=== PATIENT | male | born 1960 | race Caucasian/White ===

== ENCOUNTER 2017-09-07 10:41 | Emergency (ER) | payer MEDICAID, OTHER ==
[~2017-09-07] VITALS: Ht 167.6 cm; Wt 76.0 kg
[~2017-09-07 10:41] MED LIST: ATOR10TA PO; IBUP-2030 PO; METF850T2 PO; SULF1TAB48 PO
[2017-09-07] MEDS ORDERED: TETANUS AND DIPHTHERIA TOX/PF 0.5ML SYR (ADULT) IM ONE (11:30)
[2017-09-07] MEDS ORDERED: TETANUS, DIPHTHERIA, PERTUSSIS VAC/PF 0.5ML (>7YR OLD) IM ONE (11:45)
[2017-09-07] MEDS ORDERED: IBUPROFEN 600MG TABLET PO ONE (12:45)
[2017-09-07] MEDS ORDERED: BACITRACIN ZINC OINT UDPKT TOP ONE (12:45)
[2017-09-07 13:01] VITALS: BP 129/75
== END 2017-09-07 13:07 | disposition home or self-care (01) ==
LOC: ER 10:52
DX: S91.332A Puncture wound without foreign body, left foot, initial encounter (principal); E11.65 Type 2 diabetes mellitus with hyperglycemia; I10 Essential (primary) hypertension; W22.8XXA Striking against or struck by other objects, initial encounter; Y93.89 Activity, other specified; Y92.89 Other specified places as the place of occurrence of the external cause; Y99.8 Other external cause status; Z98.890 Other specified postprocedural states
CPT/HCPCS: 73620; 82962; 90714; 99284; 99285

== ENCOUNTER 2017-11-02 14:34 | Emergency (ER) | payer OTHER ==
[~2017-11-02] VITALS: Ht 175.3 cm; Wt 75.0 kg
[2017-11-02] MEDS ORDERED: TETANUS, DIPHTHERIA, PERTUSSIS VAC/PF 0.5ML (>7YR OLD) IM ONE (16:30)
[2017-11-02 16:47] VITALS: BP 132/80
== END 2017-11-02 16:57 | disposition home or self-care (01) ==
LOC: ER 15:03
DX: S91.331A Puncture wound without foreign body, right foot, initial encounter (principal); I10 Essential (primary) hypertension; E11.9 Type 2 diabetes mellitus without complications; E78.00 Pure hypercholesterolemia, unspecified; W45.0XXA Nail entering through skin, initial encounter; Y93.89 Activity, other specified; Y99.8 Other external cause status; Y92.89 Other specified places as the place of occurrence of the external cause; Z87.891 Personal history of nicotine dependence; Z98.890 Other specified postprocedural states
CPT/HCPCS: 73630; 99284

== ENCOUNTER 2018-10-12 10:06 | Emergency (ER) | payer OTHER ==
[~2018-10-12] VITALS: Ht 175.3 cm; Wt 80.0 kg
[~2018-10-12 10:06] MED LIST changes: +METF-415 PO; -METF850T2 PO
[2018-10-12 10:29] VITALS: BP 129/77
[2018-10-12] MEDS ORDERED: BACITRACIN ZINC OINT UDPKT TOP ONE (11:15)
[2018-10-12] MEDS ORDERED: TETANUS, DIPHTHERIA, PERTUSSIS VAC/PF 0.5ML (>7YR OLD) IM ONE (11:15)
== END 2018-10-12 12:22 | disposition home or self-care (01) ==
LOC: ER 10:11
DX: S90.421A Blister (nonthermal), right great toe, initial encounter (principal); L02.611 Cutaneous abscess of right foot; E11.40 Type 2 diabetes mellitus with diabetic neuropathy, unspecified; I10 Essential (primary) hypertension; F17.200 Nicotine dependence, unspecified, uncomplicated; Z79.899 Other long term (current) drug therapy; Z98.890 Other specified postprocedural states; W18.39XA Other fall on same level, initial encounter; Y93.89 Activity, other specified; Y92.89 Other specified places as the place of occurrence of the external cause; Y99.8 Other external cause status
CPT/HCPCS: 10060; 82962; 90471; 90715; 99283; Z7610

== ENCOUNTER 2018-12-11 13:07 | Emergency (ER) | payer OTHER ==
[~2018-12-11] VITALS: Ht 175.3 cm; Wt 79.0 kg
[2018-12-11] MEDS ORDERED: KETOROLAC 30MG/ML VIAL IV STA (16:18)
[2018-12-11] MEDS: VANCOMYCIN 1 G PREMIX 200 ML IV SCH ×2 (16:31→18:47)
[2018-12-11 16:48] LABS: CHLORIDE 102 mEq/L (98-107); INR 1.1; PROTHROMBIN TIME 11.6 sec (9.6-11.0)
[2018-12-11] MEDS ORDERED: PIPERACILLIN/TAZOBACTAM 3.375GM/50ML PREMIX IV ONE (17:00)
[2018-12-11] MEDS: PIPERACILLIN/TAZ 3.375G PREMIX 50 ML IV NR ×2 (17:31→17:42)
[2018-12-11 17:33] LABS: BASOPHILS % 0.5 % (0.0-2.0); EOSINOPHILS % 2.4 % (0.0-5.0); HEMATOCRIT. 31.5 % (42.0-52.0); HEMOGLOBIN. 10.8 g/dL (14.0-18.0); LYMPHOCYTES % 14.8 % (20.0-50.0); MEAN CORPUSCULAR HEMOGLOBIN 30.5 pg (28.0-32.0); MEAN CORPUSCULAR VOLUME 89.3 fL (80.0-94.0); MEAN PLATELET VOLUME 7.2 fl (7.4-10.4); MONOCYTES % 7.3 % (2.0-8.0); PLATELET 291 x1000/uL (130-400); RED BLOOD CELL COUNT 3.53 mill/uL (4.7-6.1); RED CELL DISTRIBUTION WIDTH 13.8 % (11.6-14.6)
[2018-12-11] MEDS ORDERED: SODIUM CHLORIDE 0.9% 1,000 ML IV ONE (18:14)
[2018-12-11 19:50] VITALS: BP 115/70
== END 2018-12-11 21:01 | disposition short-term general hospital (02) ==
LOC: ER 13:07 → CANBEDREQ 21:45
DX: E11.621 Type 2 diabetes mellitus with foot ulcer (principal); L97.528 Non-pressure chronic ulcer of other part of left foot with other specified severity; M86.9 Osteomyelitis, unspecified; E78.00 Pure hypercholesterolemia, unspecified; I10 Essential (primary) hypertension; Z88.6 Allergy status to analgesic agent
CPT/HCPCS: 36415; 71045; 73620; 80053; 85025; 85610; 93005; 96365; 96367; 96375; 99285; J1885; J2543; J3370; J7030

== ENCOUNTER 2019-02-16 10:23 | Emergency (ER) | payer OTHER ==
[~2019-02-16] VITALS: Ht 175.3 cm; Wt 72.7 kg
[2019-02-16 10:54] VITALS: BP 139/77
== END 2019-02-16 12:31 | disposition home or self-care (01) ==
LOC: ER 10:47
DX: Z76.0 Encounter for issue of repeat prescription (principal); E11.9 Type 2 diabetes mellitus without complications; Z79.4 Long term (current) use of insulin; Z88.6 Allergy status to analgesic agent; Z89.421 Acquired absence of other right toe(s)
CPT/HCPCS: 99281

== ENCOUNTER 2019-04-28 16:20 | Inpatient (IN) | payer OTHER ==
[~2019-04-28] VITALS: Ht 167.6 cm; Wt 86.8 kg
[2019-04-28] MEDS ORDERED: SODIUM CHLORIDE 0.9% 1000ML BAG (SEPSIS BOLUS) IV ONE (16:45)
[2019-04-28] MEDS ORDERED: VANCOMYCIN 1 G PREMIX 200 ML IV ONE (17:00)
[2019-04-28] MEDS ORDERED: PIPERACILLIN/TAZ 3.375G PREMIX 50 ML IV ONE (17:00)
[2019-04-28 17:19] LABS: BASOPHILS % 0.5 % (0.0-2.0); HEMATOCRIT. 36.7 % (42.0-52.0); HEMOGLOBIN. 12.7 g/dL (14.0-18.0); LYMPHOCYTES % 9.8 % (20.0-50.0); MEAN CORPUSCULAR HEMOGLOBIN 29.6 pg (28.0-32.0); MEAN CORPUSCULAR VOLUME 85.9 fL (80.0-94.0); MEAN PLATELET VOLUME 7.4 fl (7.4-10.4); MONOCYTES % 4.7 % (2.0-8.0); PLATELET 308 x1000/uL (130-400); RED BLOOD CELL COUNT 4.28 mill/uL (4.7-6.1); RED CELL DISTRIBUTION WIDTH 13.7 % (11.6-14.6)
[2019-04-28 17:24] LABS: INR 1.1; PROTHROMBIN TIME 11.7 sec (9.6-11.0)
[2019-04-28 17:25] LABS: CHLORIDE 95 mEq/L (98-107)
[2019-04-28] MEDS ORDERED: HYDROCODONE/ACETAMINOPHEN 5/325MG TABLET PO ONE (18:00)
[2019-04-28 18:41] LABS: CLARITY URINE CLEAR (CLEAR); COLOR URINE YELLOW (YELLOW); KETONES URINE TRACE (NEGATIVE); LEUKOCYTE ESTERASE URINE NEGATIVE (NEGATIVE); NITRITE URINE NEGATIVE (NEGATIVE); OCCULT BLOOD URINE 1+ (NEGATIVE); PH URINE 5.5 (4.5-8.0); PROTEIN URINE 1+ (NEGATIVE); UROBILINOGEN URINE 0.2 E.U./dL (0.2-1.0)
[2019-04-28] MEDS ORDERED: INSULIN REGULAR (HUMULIN R) 300UNITS/3ML SUBCUT NR (22:30)
[2019-04-28 23:30] VITALS: BP 125/68
[2019-04-29] VITALS (7 sets, daily range): BP systolic 106–128; BP diastolic 63–71
[2019-04-29] MEDS ORDERED: DEXTROSE 50% WATER 50ML SYRINGE IV PRN (01:00)
[2019-04-29] MEDS: HYDROMORPHONE HCL/PF 2MG/ML CPJ IM PRN ×3 (02:13→18:36)
[2019-04-29 06:13] LABS: BASOPHILS % 0.7 % (0.0-2.0); EOSINOPHILS % 0.5 % (0.0-5.0); HEMOGLOBIN. 10.6 g/dL (14.0-18.0); LYMPHOCYTES % 17.6 % (20.0-50.0); MEAN CORPUSCULAR VOLUME 84.8 fL (80.0-94.0); MEAN PLATELET VOLUME 7.3 fl (7.4-10.4); MONOCYTES % 8.4 % (2.0-8.0); NEUTROPHILS % 72.8 % (40.0-76.0); PLATELET 226 x1000/uL (130-400); RED BLOOD CELL COUNT 3.66 mill/uL (4.7-6.1); RED CELL DISTRIBUTION WIDTH 13.7 % (11.6-14.6)
[2019-04-29] MEDS: BLOOD SUGAR DIAGNOSTIC STRIP TEST SCH ×4 (06:59→21:01)
[2019-04-29] MEDS ORDERED: VANCOMYCIN 750 MG PREMIX 150 ML IV SCH (09:00)
[2019-04-29] MEDS: ASPIRIN 325MG TABLET PO SCH (09:52)
[2019-04-29] MEDS: ENOXAPARIN 40MG/0.4ML SYR SUBCUT SCH (10:27)
[2019-04-29] MEDS: INSULIN GLARGINE UD 100 UNITS/ML SYR SUBCUT SCH ×2 (10:28→22:29)
[2019-04-29] MEDS: INSULIN LISPRO 100 UNITS/ML SUBCUT SCH ×4 (10:28→21:11)
[2019-04-29] MEDS: SODIUM CHLORIDE 0.9% 1,000 ML IV SCH ×2 (10:29→22:29)
[2019-04-29] MEDS: HYDROCODONE/ACETAMINOPHEN 10/325MG TABLET PO PRN (13:41)
[2019-04-29] MEDS: PIPERACILLIN/TAZOBACTAM 3.375 G in DEXT 5% WATER 100 ML IV SCH (21:12)
[2019-04-29] MEDS: ACETAMINOPHEN 325MG TABLET PO PRN (22:20)
[2019-04-30 00:07] VITALS: BP 115/59
[2019-04-30] MEDS: VANCOMYCIN 1 G PREMIX 200 ML IV SCH ×2 (00:08→18:34)
[2019-04-30] MEDS: HYDROCODONE/ACETAMINOPHEN 10/325MG TABLET PO PRN ×2 (00:23→04:34)
[2019-04-30] MEDS: PIPERACILLIN/TAZOBACTAM 3.375 G in DEXT 5% WATER 100 ML IV SCH ×4 (02:48→21:23)
[2019-04-30 04:00] VITALS: BP 117/69
[2019-04-30 06:29] LABS: BASOPHILS % 0.3 % (0.0-2.0); EOSINOPHILS % 1.8 % (0.0-5.0); HEMATOCRIT. 32.5 % (42.0-52.0); HEMOGLOBIN. 11.1 g/dL (14.0-18.0); LYMPHOCYTES % 18.6 % (20.0-50.0); MEAN CORPUSCULAR HEMOGLOBIN 29.2 pg (28.0-32.0); MEAN CORPUSCULAR VOLUME 85.9 fL (80.0-94.0); MEAN PLATELET VOLUME 7.1 fl (7.4-10.4); NEUTROPHILS % 69.3 % (40.0-76.0); PLATELET 244 x1000/uL (130-400); RED BLOOD CELL COUNT 3.79 mill/uL (4.7-6.1); RED CELL DISTRIBUTION WIDTH 13.4 % (11.6-14.6)
[2019-04-30 06:38] LABS: CHLORIDE 99 mEq/L (98-107)
[2019-04-30] MEDS: BLOOD SUGAR DIAGNOSTIC STRIP TEST SCH ×4 (07:57→21:23)
[2019-04-30] MEDS: ASPIRIN 325MG TABLET PO SCH (08:48)
[2019-04-30] MEDS: ENOXAPARIN 40MG/0.4ML SYR SUBCUT SCH (08:49)
[2019-04-30] MEDS: INSULIN LISPRO 100 UNITS/ML SUBCUT SCH ×6 (09:04→21:31)
[2019-04-30] MEDS: INSULIN GLARGINE UD 100 UNITS/ML SYR SUBCUT SCH ×2 (10:26→21:32)
[2019-04-30] MEDS: ACETAMINOPHEN 325MG TABLET PO PRN (11:24)
[2019-04-30 12:00] VITALS: BP 121/70
[2019-04-30] MEDS ORDERED: SORBITOL 70% SOLN 30ML PO SCH (12:00)
[2019-04-30 16:00] VITALS: BP 121/69
[2019-04-30] MEDS: SODIUM CHLORIDE 0.9% 1,000 ML IV SCH (17:59)
[2019-04-30] MEDS: HYDROMORPHONE HCL/PF 2MG/ML CPJ IM PRN (18:00)
[2019-04-30 20:00] VITALS: BP 128/71
[2019-05-01] VITALS: BP 117/73
[2019-05-01] MEDS: ACETAMINOPHEN 325MG TABLET PO PRN (00:47)
[2019-05-01] MEDS: SODIUM CHLORIDE 0.9% 1,000 ML IV SCH (02:33)
[2019-05-01] MEDS ORDERED: ONDANSETRON HCL 4MG/2ML INJ IV PRN (03:00)
[2019-05-01] MEDS: PIPERACILLIN/TAZOBACTAM 3.375 G in DEXT 5% WATER 100 ML IV SCH ×2 (03:12→08:59)
[2019-05-01 04:00] VITALS: BP 114/86
[2019-05-01 06:42] LABS: BASOPHILS % 0.5 % (0.0-2.0); EOSINOPHILS % 3.5 % (0.0-5.0); HEMATOCRIT. 28.8 % (42.0-52.0); HEMOGLOBIN. 9.9 g/dL (14.0-18.0); LYMPHOCYTES % 21.7 % (20.0-50.0); MEAN CORPUSCULAR HEMOGLOBIN 29.2 pg (28.0-32.0); MEAN CORPUSCULAR VOLUME 84.7 fL (80.0-94.0); MEAN PLATELET VOLUME 7.5 fl (7.4-10.4); MONOCYTES % 11.2 % (2.0-8.0); NEUTROPHILS % 63.1 % (40.0-76.0); PLATELET 234 x1000/uL (130-400); RED CELL DISTRIBUTION WIDTH 13.7 % (11.6-14.6)
[2019-05-01 06:57] LABS: CHLORIDE 103 mEq/L (98-107)
[2019-05-01] MEDS: INSULIN LISPRO 100 UNITS/ML SUBCUT SCH ×7 (07:40→21:54)
[2019-05-01] MEDS: BLOOD SUGAR DIAGNOSTIC STRIP TEST SCH ×4 (07:58→20:33)
[2019-05-01 08:00] VITALS: BP 125/79
[2019-05-01] MEDS: ENOXAPARIN 40MG/0.4ML SYR SUBCUT SCH (08:59)
[2019-05-01] MEDS: HYDROCODONE/ACETAMINOPHEN 10/325MG TABLET PO PRN ×3 (08:59→21:53)
[2019-05-01] MEDS: INSULIN GLARGINE UD 100 UNITS/ML SYR SUBCUT SCH ×2 (10:00→21:55)
[2019-05-01 12:00] VITALS: BP 124/75
[2019-05-01 16:00] VITALS: BP 127/78
[2019-05-01] MEDS: VANCOMYCIN 1 G PREMIX 200 ML IV SCH (16:48)
[2019-05-01] MEDS: ASPIRIN 325MG TABLET PO SCH (16:50)
[2019-05-01] MEDS ORDERED: POTASSIUM CHLORIDE 20MEQ TABLET SR PO NR (17:15)
[2019-05-02] VITALS: BP 121/68
[2019-05-02] MEDS: HYDROCODONE/ACETAMINOPHEN 10/325MG TABLET PO PRN ×4 (02:03→21:57)
[2019-05-02 04:00] VITALS: BP 114/61
[2019-05-02] MEDS: VANCOMYCIN 1 G PREMIX 200 ML IV SCH (05:53)
[2019-05-02 07:23] LABS: BASOPHILS % 0.7 % (0.0-2.0); EOSINOPHILS % 6.9 % (0.0-5.0); HEMOGLOBIN. 9.6 g/dL (14.0-18.0); LYMPHOCYTES % 31.7 % (20.0-50.0); MEAN CORPUSCULAR HEMOGLOBIN 29.5 pg (28.0-32.0); MEAN CORPUSCULAR VOLUME 86.1 fL (80.0-94.0); MEAN PLATELET VOLUME 7.3 fl (7.4-10.4); MONOCYTES % 10.9 % (2.0-8.0); NEUTROPHILS % 49.8 % (40.0-76.0); PLATELET 259 x1000/uL (130-400); RED BLOOD CELL COUNT 3.25 mill/uL (4.7-6.1)
[2019-05-02] MEDS: BLOOD SUGAR DIAGNOSTIC STRIP TEST SCH ×4 (07:40→21:41)
[2019-05-02 08:00] VITALS: BP 129/66
[2019-05-02 08:02] LABS: CHLORIDE 102 mEq/L (98-107)
[2019-05-02] MEDS: INSULIN LISPRO 100 UNITS/ML SUBCUT SCH ×7 (08:10→21:56)
[2019-05-02] MEDS: SODIUM CHLORIDE 0.9% 1,000 ML IV SCH ×2 (08:46→17:32)
[2019-05-02] MEDS: ENOXAPARIN 40MG/0.4ML SYR SUBCUT SCH (08:46)
[2019-05-02] MEDS: ASPIRIN 325MG TABLET PO SCH (08:46)
[2019-05-02] MEDS: INSULIN GLARGINE UD 100 UNITS/ML SYR SUBCUT SCH ×2 (11:04→21:56)
[2019-05-02 12:00] VITALS: BP 123/73
[2019-05-02] MEDS: VANCOMYCIN 750 MG PREMIX 150 ML IV SCH ×2 (13:47→21:57)
[2019-05-02 16:00] VITALS: BP 129/72
[2019-05-02 20:00] VITALS: BP 130/80
[2019-05-03] VITALS: BP 134/70
[2019-05-03 04:00] VITALS: BP 139/73
[2019-05-03] MEDS: VANCOMYCIN 750 MG PREMIX 150 ML IV SCH ×3 (05:25→22:00)
[2019-05-03] MEDS: HYDROCODONE/ACETAMINOPHEN 10/325MG TABLET PO PRN ×2 (05:26→13:15)
[2019-05-03] MEDS: SODIUM CHLORIDE 0.9% 1,000 ML IV SCH ×2 (05:32→22:00)
[2019-05-03] MEDS: INSULIN LISPRO 100 UNITS/ML SUBCUT SCH ×7 (07:40→23:22)
[2019-05-03] MEDS: BLOOD SUGAR DIAGNOSTIC STRIP TEST SCH ×4 (07:42→21:00)
[2019-05-03 08:00] VITALS: BP 123/67
[2019-05-03] MEDS: ASPIRIN 325MG TABLET PO SCH (08:47)
[2019-05-03] MEDS: ACETAMINOPHEN 325MG TABLET PO PRN (08:47)
[2019-05-03] MEDS: ENOXAPARIN 40MG/0.4ML SYR SUBCUT SCH (08:48)
[2019-05-03 12:00] VITALS: BP 101/57
[2019-05-03] MEDS: INSULIN GLARGINE UD 100 UNITS/ML SYR SUBCUT SCH ×2 (12:32→23:23)
[2019-05-03 16:00] VITALS: BP 111/63
[2019-05-03 20:00] VITALS: BP 130/79
[2019-05-04] VITALS: BP 124/61
[2019-05-04 04:00] VITALS: BP 131/68
[2019-05-04] MEDS: VANCOMYCIN 750 MG PREMIX 150 ML IV SCH ×3 (06:23→22:10)
[2019-05-04] MEDS: BLOOD SUGAR DIAGNOSTIC STRIP TEST SCH ×4 (07:40→20:08)
[2019-05-04] MEDS: INSULIN LISPRO 100 UNITS/ML SUBCUT SCH ×7 (07:40→22:09)
[2019-05-04 08:00] VITALS: BP 110/56
[2019-05-04] MEDS: ASPIRIN 325MG TABLET PO SCH (09:18)
[2019-05-04] MEDS: ENOXAPARIN 40MG/0.4ML SYR SUBCUT SCH (09:20)
[2019-05-04 12:00] VITALS: BP 98/46
[2019-05-04] MEDS: SODIUM CHLORIDE 0.9% 1,000 ML IV SCH ×2 (14:11→22:10)
[2019-05-04] MEDS: INSULIN GLARGINE UD 100 UNITS/ML SYR SUBCUT SCH ×2 (14:16→22:19)
[2019-05-04] MEDS: ACETAMINOPHEN 325MG TABLET PO PRN ×2 (15:39→20:08)
[2019-05-04 15:45] VITALS: BP 131/64
[2019-05-04 20:00] VITALS: BP 135/63
[2019-05-05] VITALS: BP 130/68
[2019-05-05 04:00] VITALS: BP 127/68
[2019-05-05 04:21] LABS: CHLORIDE 106 mEq/L (98-107)
[2019-05-05 04:22] LABS: BASOPHILS % 0.6 % (0.0-2.0); EOSINOPHILS % 6.2 % (0.0-5.0); HEMATOCRIT. 31.2 % (42.0-52.0); HEMOGLOBIN. 10.5 g/dL (14.0-18.0); LYMPHOCYTES % 28.7 % (20.0-50.0); MEAN CORPUSCULAR VOLUME 85.9 fL (80.0-94.0); MEAN PLATELET VOLUME 6.7 fl (7.4-10.4); NEUTROPHILS % 54.5 % (40.0-76.0); PLATELET 380 x1000/uL (130-400); RED BLOOD CELL COUNT 3.63 mill/uL (4.7-6.1); RED CELL DISTRIBUTION WIDTH 14.4 % (11.6-14.6)
[2019-05-05 04:29] LABS: VANCOMYCIN TROUGH 23.4 ug/mL (5.0-10.0)
[2019-05-05] MEDS: VANCOMYCIN 750 MG PREMIX 150 ML IV SCH (06:10)
[2019-05-05] MEDS: BLOOD SUGAR DIAGNOSTIC STRIP TEST SCH ×4 (06:42→21:00)
[2019-05-05] MEDS: INSULIN LISPRO 100 UNITS/ML SUBCUT SCH ×7 (07:40→22:15)
[2019-05-05 08:00] VITALS: BP 121/65
[2019-05-05] MEDS: ASPIRIN 325MG TABLET PO SCH (09:44)
[2019-05-05] MEDS: ENOXAPARIN 40MG/0.4ML SYR SUBCUT SCH (09:45)
[2019-05-05] MEDS: INSULIN GLARGINE UD 100 UNITS/ML SYR SUBCUT SCH ×2 (09:47→22:16)
[2019-05-05 12:00] VITALS: BP 123/62
[2019-05-05 16:00] VITALS: BP 126/61
[2019-05-05] MEDS: SODIUM CHLORIDE 0.9% 1,000 ML IV SCH (17:54)
[2019-05-05] MEDS: VANCOMYCIN 1 G PREMIX 200 ML IV SCH (17:54)
[2019-05-05 20:00] VITALS: BP 129/57
[2019-05-05] MEDS: ACETAMINOPHEN 325MG TABLET PO PRN (22:18)
[2019-05-06] VITALS (7 sets, daily range): BP systolic 122–139; BP diastolic 60–87
[2019-05-06] MEDS: ACETAMINOPHEN 325MG TABLET PO PRN ×2 (02:27→18:10)
[2019-05-06] MEDS: VANCOMYCIN 1 G PREMIX 200 ML IV SCH ×2 (05:10→18:09)
[2019-05-06 07:22] LABS: BASOPHILS % 1.1 % (0.0-2.0); EOSINOPHILS % 4.8 % (0.0-5.0); HEMATOCRIT. 29.9 % (42.0-52.0); HEMOGLOBIN. 10.2 g/dL (14.0-18.0); LYMPHOCYTES % 33.6 % (20.0-50.0); MEAN CORPUSCULAR HEMOGLOBIN 29.2 pg (28.0-32.0); MEAN CORPUSCULAR VOLUME 85.1 fL (80.0-94.0); MONOCYTES % 7.7 % (2.0-8.0); NEUTROPHILS % 52.8 % (40.0-76.0); PLATELET 431 x1000/uL (130-400); RED BLOOD CELL COUNT 3.51 mill/uL (4.7-6.1); RED CELL DISTRIBUTION WIDTH 14.4 % (11.6-14.6)
[2019-05-06 07:40] LABS: CHLORIDE 107 mEq/L (98-107)
[2019-05-06] MEDS ORDERED: TETRACAINE/BENZOCAINE/BUTAMBEN 20 GM SPRAY MM ONE (09:13)
[2019-05-06] MEDS ORDERED: MIDAZOLAM HCL 2 MG/2 ML VIAL ONE (09:13)
[2019-05-06] MEDS ORDERED: FENTANYL CITRATE/PF 50MCG/ML 2ML VIAL ONE (09:14)
[2019-05-06] MEDS ORDERED: LIDOCAINE HCL 2% JELLY 5ML ONE (09:16)
[2019-05-06] MEDS: INSULIN LISPRO 100 UNITS/ML SUBCUT SCH ×5 (11:45→21:00)
[2019-05-06] MEDS: ASPIRIN 325MG TABLET PO SCH (12:00)
[2019-05-06] MEDS: ENOXAPARIN 40MG/0.4ML SYR SUBCUT SCH (12:00)
[2019-05-06] MEDS: INSULIN GLARGINE UD 100 UNITS/ML SYR SUBCUT SCH ×2 (12:05→22:12)
[2019-05-06] MEDS ORDERED: POTASSIUM CHLORIDE 20MEQ TABLET SR PO SCH (12:15)
[2019-05-06] MEDS: BLOOD SUGAR DIAGNOSTIC STRIP TEST SCH ×3 (12:39→21:00)
[2019-05-07] VITALS: BP 125/65
[2019-05-07 04:00] VITALS: BP 133/63
[2019-05-07] MEDS: BLOOD SUGAR DIAGNOSTIC STRIP TEST SCH ×2 (06:59→12:03)
[2019-05-07] MEDS: INSULIN LISPRO 100 UNITS/ML SUBCUT SCH ×4 (06:59→12:20)
[2019-05-07 08:00] VITALS: BP 133/68
[2019-05-07] MEDS: ENOXAPARIN 40MG/0.4ML SYR SUBCUT SCH (08:04)
[2019-05-07] MEDS: ASPIRIN 325MG TABLET PO SCH (08:04)
[2019-05-07] MEDS: ACETAMINOPHEN 325MG TABLET PO PRN (08:07)
[2019-05-07] MEDS ORDERED: VANCOMYCIN 1 G PREMIX 200 ML IV SCH (10:00)
[2019-05-07] MEDS: INSULIN GLARGINE UD 100 UNITS/ML SYR SUBCUT SCH (10:07)
[2019-05-07 12:00] VITALS: BP 137/74
[2019-05-07 16:00] VITALS: BP 135/70
== END 2019-05-07 17:13 | disposition home health service (06) | DRG 720 ==
LOC: ER 16:20 → 7WST 21:38 → EDBEDREQTM 21:41 → EDBEDREQSVC 21:41 → EDBEDREQ 21:41 → ENRESERV 21:56 → 5WST 05-06 07:02
PROVIDERS: ADMIT Internal Medicine; ATTEND Internal Medicine
PROC: 0JBQ0ZZ Excision of Right Foot Subcutaneous Tissue and Fascia, Open Approach (ICD-10-PCS; 2019-04-30)
PROC: 02HV33Z Insertion of Infusion Device into Superior Vena Cava, Percutaneous Approach (ICD-10-PCS; principal; 2019-05-07)
PROC: B548ZZA Ultrasonography of Superior Vena Cava, Guidance (ICD-10-PCS; 2019-05-07)
DX: A41.02 Sepsis due to Methicillin resistant Staphylococcus aureus (principal); N17.0 Acute kidney failure with tubular necrosis; E11.42 Type 2 diabetes mellitus with diabetic polyneuropathy; E11.51 Type 2 diabetes mellitus with diabetic peripheral angiopathy without gangrene; E87.8 Other disorders of electrolyte and fluid balance, not elsewhere classified; D64.9 Anemia, unspecified; E87.1 Hypo-osmolality and hyponatremia; E11.621 Type 2 diabetes mellitus with foot ulcer; L02.611 Cutaneous abscess of right foot; L97.519 Non-pressure chronic ulcer of other part of right foot with unspecified severity; E11.69 Type 2 diabetes mellitus with other specified complication; E78.5 Hyperlipidemia, unspecified; I10 Essential (primary) hypertension; N28.9 Disorder of kidney and ureter, unspecified; F14.10 Cocaine abuse, uncomplicated; E11.649 Type 2 diabetes mellitus with hypoglycemia without coma; M86.8X7 Other osteomyelitis, ankle and foot; Z87.891 Personal history of nicotine dependence; Z88.5 Allergy status to narcotic agent; Z79.899 Other long term (current) drug therapy; Z88.8 Allergy status to other drugs, medicaments and biological substances
CPT/HCPCS: 36415; 36573; 71045; 73030; 73630; 73718; 76937; 80048; 80061; 80202; 81003; 82962; 83036; 83605; 84145; 84484; 85651; 86140; 87070; 87075; 87077; 93005; 93306; 93312; 93923; 93970; 96365; 96366; 96367; 97116; 97162; 99291; C1725; C1893; J1170; J1650; J1815; J2250; J2405; J2543; J3010; J3370; J7030; J7040; J7060

== ENCOUNTER 2019-05-20 14:03 | Emergency (ER) | payer OTHER ==
[~2019-05-20] VITALS: Ht 172.7 cm; Wt 78.0 kg
[~2019-05-20 14:03] MED LIST changes: -ATOR10TA PO; -SULF1TAB48 PO
[2019-05-20] MEDS ORDERED: PIPERACILLIN/TAZ 3.375G PREMIX 50 ML IV ONE (17:00)
[2019-05-20] MEDS ORDERED: CLINDAMYCIN 600 MG in DEXTROSE 5% WATER 50 ML IV ONE (17:00)
[2019-05-20] MEDS ORDERED: VANCOMYCIN 1 G PREMIX 200 ML IV ONE (17:00)
[2019-05-20 17:49] LABS: BASOPHILS % 0.7 % (0.0-2.0); HEMATOCRIT. 28.9 % (42.0-52.0); HEMOGLOBIN. 9.9 g/dL (14.0-18.0); LYMPHOCYTES % 41.3 % (20.0-50.0); MEAN CORPUSCULAR VOLUME 84.9 fL (80.0-94.0); MEAN PLATELET VOLUME 6.4 fl (7.4-10.4); MONOCYTES % 5.8 % (2.0-8.0); NEUTROPHILS % 47.2 % (40.0-76.0); PLATELET 379 x1000/uL (130-400); RED CELL DISTRIBUTION WIDTH 14.3 % (11.6-14.6)
[2019-05-20 17:54] LABS: CHLORIDE 100 mEq/L (98-107)
[2019-05-20 19:08] LABS: CLARITY URINE CLEAR (CLEAR); COLOR URINE YELLOW (YELLOW); KETONES URINE NEGATIVE (NEGATIVE); LEUKOCYTE ESTERASE URINE NEGATIVE (NEGATIVE); NITRITE URINE NEGATIVE (NEGATIVE); OCCULT BLOOD URINE NEGATIVE (NEGATIVE); PH URINE 6.5 (4.5-8.0); PROTEIN URINE NEGATIVE (NEGATIVE); UROBILINOGEN URINE 0.2 E.U./dL (0.2-1.0)
[2019-05-20] MEDS ORDERED: CLINDAMYCIN 600MG PREMIX 50 ML IV SCH (19:46)
[2019-05-20 21:58] VITALS: BP 143/75
== END 2019-05-20 22:40 | disposition short-term general hospital (02) ==
LOC: ER 14:03 → CANBEDREQ 22:56
DX: M86.8X7 Other osteomyelitis, ankle and foot (principal); M72.6 Necrotizing fasciitis; Z46.82 Encounter for fitting and adjustment of non-vascular catheter; E11.9 Type 2 diabetes mellitus without complications; Z88.5 Allergy status to narcotic agent; Z79.84 Long term (current) use of oral hypoglycemic drugs; Z89.421 Acquired absence of other right toe(s)
CPT/HCPCS: 36415; 73630; 80053; 81003; 83605; 84145; 84484; 85025; 87040; 87086; 93005; 96365; 96366; 96368; 99285; J2543; J3370; J3490; Z7610; J7060

== ENCOUNTER 2022-01-30 18:52 | Emergency (ER) | payer MEDICARE, OTHER ==
[~2022-01-30] VITALS: Ht 175.3 cm; Wt 81.0 kg
[2022-01-30 20:33] LABS: BASOPHILS % 0.9 % (0.0-2.0); EOSINOPHILS % 6.1 % (0.0-5.0); HEMATOCRIT. 37.8 % (42.0-52.0); HEMOGLOBIN. 12.9 g/dL (14.0-18.0); LYMPHOCYTES % 48.9 % (20.0-50.0); MEAN CORPUSCULAR HEMOGLOBIN 29.7 pg (28.0-32.0); MEAN CORPUSCULAR VOLUME 87.5 fL (80.0-94.0); MEAN PLATELET VOLUME 6.8 fl (7.4-10.4); MONOCYTES % 9.1 % (2.0-8.0); PLATELET 215 x1000/uL (130-400); RED BLOOD CELL COUNT 4.32 mill/uL (4.7-6.1)
[2022-01-30 20:42] LABS: CHLORIDE 106 mEq/L (98-107)
[2022-01-30] MEDS ORDERED: AMOX1TAB16 MT (21:18)
[2022-01-30 22:48] VITALS: BP 120/78
== END 2022-01-30 22:53 | disposition home or self-care (01) ==
LOC: ER 18:52
DX: T14.8XXA Other injury of unspecified body region, initial encounter (principal); X58.XXXA Exposure to other specified factors, initial encounter; Y93.89 Activity, other specified; Y92.89 Other specified places as the place of occurrence of the external cause; Y99.8 Other external cause status; E11.9 Type 2 diabetes mellitus without complications; Z98.890 Other specified postprocedural states
CPT/HCPCS: 36415; 73630; 80053; 85025; 99284

== ENCOUNTER 2024-02-08 21:18 | Inpatient (IN) | payer BC, OTHER ==
[~2024-02-08] VITALS: Ht 175.3 cm; Wt 78.0 kg
[~2024-02-08 21:18] MED LIST changes: +AMOX1TAB16 MT; +CELE-116 PO; +DULA1.5P SUBCUT; -IBUP-2030 PO; +INSU100I24 SUBCUT; -METF-415 PO; +NAPR-681 PO; +PEN-61 TP; +ROSU20TA2 PO
[2024-02-08 21:47] VITALS: O2SAT 100
[2024-02-08 23:11] LABS: BASOPHILS % 0.5 % (0.0-2.0); EOSINOPHILS % 4.1 % (0.0-5.0); HEMATOCRIT. 37.6 % (42.0-52.0); HEMOGLOBIN. 12.7 g/dL (14.0-18.0); LYMPHOCYTES % 33.7 % (20.0-50.0); MEAN CORPUSCULAR HEMOGLOBIN 29.9 pg (28.0-32.0); MEAN CORPUSCULAR HGB CONC 33.7 g/dL (31.0-37.0); MEAN CORPUSCULAR VOLUME 88.8 fL (80.0-94.0); MEAN PLATELET VOLUME 6.8 fl (7.4-10.4); NEUTROPHILS % 53.7 % (40.0-76.0); PLATELET 333 x1000/uL (130-400); RED BLOOD CELL COUNT 4.24 mill/uL (4.7-6.1); RED CELL DISTRIBUTION WIDTH 13.9 % (11.6-14.6); WHITE BLOOD COUNT 10.1 x1000/uL (4.5-11.0)
[2024-02-08 23:18] LABS: POTASSIUM 4.3 mEq/L (3.5-5.1)
[2024-02-08 23:19] LABS: CALCIUM 9.5 mg/dL (8.7-10.4)
[2024-02-08 23:20] LABS: PROTHROMBIN TIME 11.4 sec (9.6-11.0)
[2024-02-08 23:24] LABS: CREATININE 1.4 mg/dL (0.6-1.3)
[2024-02-09] MEDS: SODIUM CHLORIDE 0.9% 1,000 ML IV ONE (00:58)
[2024-02-09] MEDS: VANCOMYCIN 1G PREMIX 200 ML IV SCH (00:59)
[2024-02-09 01:30] VITALS: BP 129/60; PULSE 74; RESP 18; TEMP 36.418
[2024-02-09] MEDS ORDERED: DEXTROSE 50% WATER 50ML SYRINGE IV PRN (03:45)
[2024-02-09 04:00] VITALS: BP 112/63; PULSE 72; RESP 20; TEMP 36.22512; O2SAT 99
[2024-02-09] MEDS: BLOOD SUGAR DIAGNOSTIC STRIP TEST SCH (06:35)
[2024-02-09] MEDS: INSULIN LISPRO 100 UNITS/ML SUBCUT SCH (07:24)
[2024-02-09 08:00] VITALS: BP 108/64; PULSE 66; RESP 18; TEMP 36.114; O2SAT 98
[2024-02-09 08:18] LABS: BASOPHILS % 0.6 % (0.0-2.0); EOSINOPHILS % 4.4 % (0.0-5.0); HEMATOCRIT. 36.7 % (42.0-52.0); HEMOGLOBIN. 12.3 g/dL (14.0-18.0); LYMPHOCYTES % 31.7 % (20.0-50.0); MEAN CORPUSCULAR HEMOGLOBIN 29.6 pg (28.0-32.0); MEAN CORPUSCULAR HGB CONC 33.4 g/dL (31.0-37.0); MEAN CORPUSCULAR VOLUME 88.5 fL (80.0-94.0); MEAN PLATELET VOLUME 7.3 fl (7.4-10.4); MONOCYTES % 9.1 % (2.0-8.0); NEUTROPHILS % 54.2 % (40.0-76.0); PLATELET 295 x1000/uL (130-400); RED BLOOD CELL COUNT 4.15 mill/uL (4.7-6.1); RED CELL DISTRIBUTION WIDTH 13.7 % (11.6-14.6); WHITE BLOOD COUNT 8.2 x1000/uL (4.5-11.0)
[2024-02-09 08:22] LABS: CARBON DIOXIDE 25 mEq/L (21-32); CHLORIDE 104 mEq/L (98-107); POTASSIUM 3.6 mEq/L (3.5-5.1); SODIUM 137 mEq/L (136-145)
[2024-02-09 08:23] LABS: CALCIUM 8.8 mg/dL (8.7-10.4)
[2024-02-09 08:27] LABS: CREATININE 1.2 mg/dL (0.6-1.3)
[2024-02-09 08:28] LABS: GLUCOSE 132 mg/dL (70-105); UREA NITROGEN BLOOD 17 mg/dL (9-23)
[2024-02-09] MEDS: PIPERACILLIN/TAZO 3.375G/50ML 50 ML IV SCH (09:36)
[2024-02-09] MEDS: VANCOMYCIN 500MG PREMIX 100 ML IV SCH (09:39)
[2024-02-09 12:40] VITALS: BP 121/67; PULSE 64; RESP 17; TEMP 36.6696; O2SAT 99
[2024-02-09] MEDS ORDERED: PIPERACILLIN/TAZO 3.375G/50ML IV SCH (14:00)
[2024-02-09] MEDS ORDERED: VANCOMYCIN 1GM/200ML PMX (BAXTER) IV NR (15:00)
[2024-02-09 16:00] VITALS: BP 120/65; PULSE 80; RESP 18; TEMP 36.114; O2SAT 98
[2024-02-09] MEDS: ACETAMINOPHEN 325MG TABLET PO PRN (16:14)
[2024-02-09 20:00] VITALS: BP 102/52; PULSE 70; RESP 20; TEMP 36.61404; O2SAT 97
[2024-02-10] VITALS: BP 98/57; PULSE 62; RESP 20; TEMP 36.22512
[2024-02-10 07:57] VITALS: BP 109/57; PULSE 61; RESP 17; TEMP 37.05852; O2SAT 98
[2024-02-10] MEDS: VANCOMYCIN 1.25GM PMX (XELLIA) 250 ML IV SCH (08:00)
[2024-02-10 08:05] LABS: BASOPHILS % 0.6 % (0.0-2.0); EOSINOPHILS % 4.2 % (0.0-5.0); HEMATOCRIT. 35.8 % (42.0-52.0); HEMOGLOBIN. 11.8 g/dL (14.0-18.0); LYMPHOCYTES % 24.2 % (20.0-50.0); MEAN CORPUSCULAR HEMOGLOBIN 29.2 pg (28.0-32.0); MEAN CORPUSCULAR VOLUME 88.6 fL (80.0-94.0); PLATELET 302 x1000/uL (130-400); RED BLOOD CELL COUNT 4.04 mill/uL (4.7-6.1); RED CELL DISTRIBUTION WIDTH 13.8 % (11.6-14.6); WHITE BLOOD COUNT 9.1 x1000/uL (4.5-11.0)
[2024-02-10 08:17] LABS: CHLORIDE 107 mEq/L (98-107); POTASSIUM 3.7 mEq/L (3.5-5.1); SODIUM 140 mEq/L (136-145)
[2024-02-10 08:18] LABS: CARBON DIOXIDE 25 mEq/L (21-32)
[2024-02-10 08:19] LABS: CALCIUM 8.9 mg/dL (8.7-10.4)
[2024-02-10 08:23] LABS: CREATININE 1.2 mg/dL (0.6-1.3); GLUCOSE 98 mg/dL (70-105)
[2024-02-10 08:24] LABS: UREA NITROGEN BLOOD 19 mg/dL (9-23)
[2024-02-10 08:26] LABS: PHOSPHORUS 4.3 mg/dL (2.5-4.9)
[2024-02-10 12:00] VITALS: BP 114/62; PULSE 60; RESP 17; TEMP 36.6696; O2SAT 100
[2024-02-10] MEDS: PIPERACILLIN/TAZO 3.375G/50ML IV SCH (15:28)
[2024-02-10 16:00] VITALS: BP 119/68; PULSE 62; RESP 17; TEMP 36.50292; O2SAT 100
[2024-02-10 20:00] VITALS: BP 136/75; PULSE 69; RESP 18; TEMP 36.28068; O2SAT 100
[2024-02-11] VITALS: BP 120/68; PULSE 64; RESP 18; TEMP 36.114; O2SAT 98
[2024-02-11 04:00] VITALS: BP 135/66; PULSE 70; RESP 18; TEMP 36.55848; O2SAT 98
[2024-02-11 07:05] LABS: CALCIUM 9.4 mg/dL (8.7-10.4); POTASSIUM 4.2 mEq/L (3.5-5.1)
[2024-02-11 07:10] LABS: CREATININE 1.3 mg/dL (0.6-1.3)
[2024-02-11 07:15] LABS: BASOPHILS % 0.6 % (0.0-2.0); EOSINOPHILS % 5.2 % (0.0-5.0); HEMATOCRIT. 34.9 % (42.0-52.0); HEMOGLOBIN. 11.8 g/dL (14.0-18.0); LYMPHOCYTES % 36.1 % (20.0-50.0); MEAN CORPUSCULAR HGB CONC 33.8 g/dL (31.0-37.0); MEAN CORPUSCULAR VOLUME 88.8 fL (80.0-94.0); MEAN PLATELET VOLUME 7.2 fl (7.4-10.4); MONOCYTES % 8.5 % (2.0-8.0); NEUTROPHILS % 49.6 % (40.0-76.0); PLATELET 312 x1000/uL (130-400); RED BLOOD CELL COUNT 3.93 mill/uL (4.7-6.1); RED CELL DISTRIBUTION WIDTH 13.4 % (11.6-14.6); WHITE BLOOD COUNT 8.3 x1000/uL (4.5-11.0)
[2024-02-11 08:00] VITALS: BP 124/65; PULSE 59; RESP 19; TEMP 36.72516; O2SAT 99
[2024-02-11 12:00] VITALS: BP 114/67; PULSE 59; RESP 20; TEMP 36.72516; O2SAT 99
[2024-02-11 16:00] VITALS: BP 117/66; PULSE 69; RESP 20; TEMP 37.05852; O2SAT 99
[2024-02-11] MEDS: METFORMIN HCL 500MG TABLET PO SCH (17:50)
[2024-02-11 20:00] VITALS: BP 133/73; PULSE 68; RESP 20; O2SAT 100
[2024-02-12 04:00] VITALS: BP 124/80; PULSE 74; RESP 20; O2SAT 98
[2024-02-12 07:29] LABS: BASOPHILS % 0.6 % (0.0-2.0); EOSINOPHILS % 5.2 % (0.0-5.0); HEMOGLOBIN. 11.9 g/dL (14.0-18.0); LYMPHOCYTES % 35.9 % (20.0-50.0); MEAN CORPUSCULAR HEMOGLOBIN 29.1 pg (28.0-32.0); MEAN CORPUSCULAR VOLUME 88.2 fL (80.0-94.0); MONOCYTES % 7.4 % (2.0-8.0); NEUTROPHILS % 50.9 % (40.0-76.0); PLATELET 321 x1000/uL (130-400); RED BLOOD CELL COUNT 4.08 mill/uL (4.7-6.1); RED CELL DISTRIBUTION WIDTH 13.4 % (11.6-14.6); WHITE BLOOD COUNT 7.6 x1000/uL (4.5-11.0)
[2024-02-12 07:39] LABS: CHLORIDE 105 mEq/L (98-107); SODIUM 138 mEq/L (136-145)
[2024-02-12 07:40] LABS: CALCIUM 9.4 mg/dL (8.7-10.4); CARBON DIOXIDE 26 mEq/L (21-32)
[2024-02-12 07:45] LABS: CREATININE 1.2 mg/dL (0.6-1.3); GLUCOSE 152 mg/dL (70-105); UREA NITROGEN BLOOD 13 mg/dL (9-23)
[2024-02-12 08:00] VITALS: BP 121/65; PULSE 67; RESP 20; TEMP 36.6696; O2SAT 100
[2024-02-12 12:18] VITALS: BP 114/70; PULSE 65; RESP 20; TEMP 36.114; O2SAT 99
[2024-02-12] MEDS: VANCOMYCIN 1.5GM/250ML IV SCH (14:19)
[2024-02-12 16:00] VITALS: BP 107/57; PULSE 64; RESP 16; TEMP 36.114; O2SAT 98
[2024-02-12 20:00] VITALS: BP 101/58; PULSE 65; RESP 18; TEMP 36.22512; O2SAT 99
[2024-02-13] VITALS: BP 116/69; PULSE 63; RESP 18; TEMP 36.61404; O2SAT 98
[2024-02-13 04:00] VITALS: BP 136/72; PULSE 68; RESP 68; TEMP 36.50292; O2SAT 18
[2024-02-13 07:27] LABS: CALCIUM 9.5 mg/dL (8.7-10.4)
[2024-02-13 07:32] LABS: CREATININE 1.3 mg/dL (0.6-1.3)
[2024-02-13 08:00] VITALS: BP 121/62; PULSE 60; RESP 16; TEMP 36.9474; O2SAT 96
[2024-02-13] MEDS ORDERED: LIDOCAINE HCL 1% 10 MG/ML 10ML VIAL ONE (08:11)
[2024-02-13 08:39] LABS: BASOPHILS % 0.6 % (0.0-2.0); EOSINOPHILS % 5.3 % (0.0-5.0); HEMATOCRIT. 36.7 % (42.0-52.0); HEMOGLOBIN. 12.4 g/dL (14.0-18.0); MEAN CORPUSCULAR HEMOGLOBIN 29.9 pg (28.0-32.0); MEAN CORPUSCULAR HGB CONC 33.6 g/dL (31.0-37.0); MEAN CORPUSCULAR VOLUME 88.8 fL (80.0-94.0); MONOCYTES % 6.2 % (2.0-8.0); NEUTROPHILS % 57.9 % (40.0-76.0); PLATELET 352 x1000/uL (130-400); RED BLOOD CELL COUNT 4.14 mill/uL (4.7-6.1); RED CELL DISTRIBUTION WIDTH 13.3 % (11.6-14.6); WHITE BLOOD COUNT 7.7 x1000/uL (4.5-11.0)
[2024-02-13 12:00] VITALS: BP 105/65; PULSE 64; RESP 18; TEMP 37.05852; O2SAT 100
[2024-02-13 16:00] VITALS: BP 116/67; PULSE 65; RESP 19; TEMP 36.55848; O2SAT 99
[2024-02-13 20:00] VITALS: BP 107/59; PULSE 65; RESP 16; TEMP 37.05852; O2SAT 95
[2024-02-13] MEDS: CEFTRIAXONE 2GM/50ML 50 ML IV SCH (20:29)
[2024-02-14] VITALS: BP 130/71; PULSE 62; RESP 17; TEMP 37.00296; O2SAT 97
[2024-02-14 04:00] VITALS: BP 119/67; PULSE 64; RESP 20; TEMP 36.78072; O2SAT 98
[2024-02-14 07:26] LABS: CALCIUM 9.4 mg/dL (8.7-10.4)
[2024-02-14 07:29] LABS: CREATININE 1.4 mg/dL (0.6-1.3)
[2024-02-14 08:04] LABS: BASOPHILS % 0.7 % (0.0-2.0); LYMPHOCYTES % 34.5 % (20.0-50.0); MEAN CORPUSCULAR HEMOGLOBIN 29.5 pg (28.0-32.0); MEAN CORPUSCULAR HGB CONC 33.4 g/dL (31.0-37.0); MEAN CORPUSCULAR VOLUME 88.5 fL (80.0-94.0); MONOCYTES % 8.4 % (2.0-8.0); NEUTROPHILS % 50.4 % (40.0-76.0); PLATELET 342 x1000/uL (130-400); RED BLOOD CELL COUNT 4.06 mill/uL (4.7-6.1); RED CELL DISTRIBUTION WIDTH 13.5 % (11.6-14.6); WHITE BLOOD COUNT 7.4 x1000/uL (4.5-11.0)
[2024-02-14 08:12] VITALS: BP 109/60; PULSE 72; RESP 20; TEMP 36.6696; O2SAT 100
[2024-02-14 12:00] VITALS: BP 125/60; PULSE 65; RESP 20; TEMP 36.114; O2SAT 99
[2024-02-14 16:00] VITALS: BP 122/62; PULSE 65; RESP 20; TEMP 36.6696; O2SAT 99
[2024-02-14 20:00] VITALS: BP 123/68; PULSE 65; RESP 19; TEMP 36.55848; O2SAT 98
[2024-02-15] VITALS: BP 119/62; PULSE 62; RESP 18; TEMP 37.33632; O2SAT 96
[2024-02-15 04:00] VITALS: BP 138/75; PULSE 58; RESP 20; TEMP 36.55848; O2SAT 99
[2024-02-15 08:00] VITALS: BP 113/64; PULSE 65; RESP 18; TEMP 36.3918; O2SAT 100
[2024-02-15 12:00] VITALS: BP 116/68; PULSE 64; RESP 16; TEMP 36.61404; O2SAT 97
[2024-02-15 16:00] VITALS: BP 117/60; PULSE 68; RESP 18; TEMP 37.00296; O2SAT 99
[2024-02-15 20:00] VITALS: BP 133/68; PULSE 73; RESP 20; TEMP 36.22512; O2SAT 99
[2024-02-16 04:00] VITALS: BP_SYST 121; BP_SYST 134; BP_DIAS 66; BP_DIAS 79; PULSE 73; PULSE 84; RESP 18; RESP 20; TEMP 36.28068; O2SAT 98
[2024-02-16 08:00] VITALS: BP 112/53; PULSE 63; RESP 20; TEMP 36.78072; O2SAT 100
[2024-02-16 12:00] VITALS: BP 165/65; PULSE 69; RESP 20; TEMP 36.114; TEMP 36.11400; O2SAT 100
[2024-02-16] MEDS ORDERED: CEFD300C3 MT (14:00)
[2024-02-16 16:02] VITALS: BP 139/70; PULSE 75; TEMP 97.9
== END 2024-02-16 17:49 | disposition home health service (06) | DRG 638 ==
LOC: ER 21:18 → 6WST 02-09 02:20
PROVIDERS: ADMIT Internal Medicine; ATTEND Internal Medicine
PROC: 0H9NXZZ Drainage of Left Foot Skin, External Approach (ICD-10-PCS; principal; 2024-02-09)
PROC: 02HV33Z Insertion of Infusion Device into Superior Vena Cava, Percutaneous Approach (ICD-10-PCS; 2024-02-13)
PROC: B5181ZA Fluoroscopy of Superior Vena Cava using Low Osmolar Contrast, Guidance (ICD-10-PCS; 2024-02-13)
PROC: B548ZZA Ultrasonography of Superior Vena Cava, Guidance (ICD-10-PCS; 2024-02-13)
DX: E11.621 Type 2 diabetes mellitus with foot ulcer (principal); M00.9 Pyogenic arthritis, unspecified; M86.9 Osteomyelitis, unspecified; E11.69 Type 2 diabetes mellitus with other specified complication; L97.529 Non-pressure chronic ulcer of other part of left foot with unspecified severity; E11.42 Type 2 diabetes mellitus with diabetic polyneuropathy; D64.9 Anemia, unspecified; B96.20 Unspecified Escherichia coli [E. coli] as the cause of diseases classified elsewhere; E11.51 Type 2 diabetes mellitus with diabetic peripheral angiopathy without gangrene; Z79.84 Long term (current) use of oral hypoglycemic drugs; Z79.4 Long term (current) use of insulin; Z89.411 Acquired absence of right great toe; Z86.14 Personal history of Methicillin resistant Staphylococcus aureus infection
CPT/HCPCS: 36415; 36573; 71045; 73630; 73718; 80048; 80202; 82962; 83036; 83735; 84100; 84145; 85025; 85651; 86850; 86900; 87070; 87077; 87186; 93923; 99285; C1725; C1892; J0696; J1815; J2543; J3370; J3490; J7030